=== PATIENT | male | born 1970 | race Two or more races ===

== ENCOUNTER 2017-11-26 14:58 | Emergency (ER) | payer OTHER ==
[~2017-11-26] VITALS: Ht 180.3 cm; Wt 57.0 kg
[2017-11-26] MEDS ORDERED: fentaNYL/PF 50MCG/1 ML 2ML syringe IV ONE (15:15)
[2017-11-26] MEDS ORDERED: normal saline 1000ML IV soln IVB ONE (15:15)
[2017-11-26] MEDS ORDERED: propofol 10mg/ml 20ml vial IV ONE (15:35)
[2017-11-26] MEDS ORDERED: BUPIVAcaine/PF 2.5 mg/ml (0.25%) 30ml vial IJ ONE (15:40)
[2017-11-26] MEDS ORDERED: propofol 1000mg/100ml bottle 100 ML IV ONE (15:49)
[2017-11-26] MEDS ORDERED: HYDR-565 PO (16:27)
[2017-11-26 16:57] VITALS: BP 135/76
== END 2017-11-26 17:00 | disposition home or self-care (01) ==
LOC: ER 14:59
DX: S62.102A Fracture of unspecified carpal bone, left wrist, initial encounter for closed fracture (principal); Z98.890 Other specified postprocedural states; V29.9XXA Motorcycle rider (driver) (passenger) injured in unspecified traffic accident, initial encounter; Y93.89 Activity, other specified; Y92.89 Other specified places as the place of occurrence of the external cause; Y99.8 Other external cause status
CPT/HCPCS: 25605; 73100; 73110; 99285; A4565; A6449; J2704; J3490; J7030; L0172; 99152